=== PATIENT | female | born 1980 | race Caucasian/White ===

== ENCOUNTER 2018-04-21 22:00 | Inpatient (IN) | payer BC ==
[~2018-04-21 22:00] MED LIST: Bupivacaine 0.25% HCL 30 ML VIAL ONE; Bupivacaine/Epinephrine 0.25% 30 ML VIAL ONE
[2018-04-21] MEDS ORDERED: HYDROcodone/Acetaminophen 5/325 mg Tablet PO PRN ×2 (22:34)
[2018-04-21] MEDS ORDERED: Diphenoxylate HCl/Atropine Tablet PO PRN ×2 (22:34)
[2018-04-21] MEDS ORDERED: Ibuprofen 800 MG TAB PO PRN (22:34)
[2018-04-21] MEDS ORDERED: NS / Oxytocin 40 units/1000ml 1,000 ML IV PRN (22:34)
[2018-04-21] MEDS ORDERED: Promethazine HCl 25 MG/ML VIAL IM PRN (22:34)
[2018-04-21] MEDS ORDERED: NS w/ Oxytocin 10 units 500 ML IV SCH (22:34)
[2018-04-21] MEDS ORDERED: Misoprostol 200 MCG TAB PR PRN (22:34)
[2018-04-21] MEDS ORDERED: Lidocaine 1% (PF) 30 ML VIAL SC PRN (22:34)
[2018-04-21] MEDS ORDERED: Docusate 100 MG CAP PO PRN (22:34)
[2018-04-21] MEDS ORDERED: Zolpidem Tartrate 5 MG TAB PO PRN (22:34)
[2018-04-21] MEDS ORDERED: Butorphanol Tartrate 1 MG/ML VIAL SLOW IVP PRN (22:34)
[2018-04-21] MEDS ORDERED: Acetaminophen 500 MG TAB PO PRN (22:34)
[2018-04-21 22:43] VITALS: BMI 32.5
[2018-04-21] MEDS: Lactated Ringer's 1,000 ML IV SCH (23:00)
[2018-04-21] MEDS: Misoprostol 100 MCG TAB VAG SCH (23:10)
[2018-04-21 23:16] LABS: Hemoglobin 12.6 g/dL (12.0-16.0); Mean Corpuscular HGB CONC 33.7 g/dL (32.0-36.0); Mean Corpuscular Hemoglobin 30.3 pg (27.0-31.0); Mean Platelet Volume 8.2 fL (7.4-10.4); Platelet Count 251 thou/uL (130-400); RBC Distribution Width 13.3 % (11.5-14.5); Red Blood Cell (RBC) Count 4.16 mill/uL (4.20-5.40); White Blood Cell (WBC) Count 11.9 thou/uL (4.8-10.8)
[2018-04-21 23:53] LABS: HBSAg Index 0.28 S/CO (0-0.99); Hep B Surf Ag Non-Reactive S/CO (NonReactive)
[2018-04-21 23:58] LABS: Syphilis Antibody Nonreactive (Nonreactive); Syphilis Antibody Index 0.03 S/CO (<1.00 Non-Reactive)
[2018-04-22] MEDS: Lactated Ringer's 1,000 ML IV SCH ×3 (03:15→23:00)
[2018-04-22] MEDS: NS w/ Oxytocin 10 units 500 ML IV SCH (07:28)
[2018-04-22] MEDS: Misoprostol 100 MCG TAB VAG SCH ×6 (08:39→23:16)
[2018-04-22] MEDS ORDERED: Fentanyl 4 mcg/Bup 0.1% Cadd 100 ML ONE ×2 (12:04→19:21)
[2018-04-22] MEDS ORDERED: Fentanyl 100 MCG/2 ML VIAL ONE (12:05)
[2018-04-22] MEDS ORDERED: Fentanyl 100 MCG/2 ML VIAL EPIDURAL ONE (12:40)
[2018-04-22] MEDS ORDERED: Lactated Ringer's 500 ML IV PRN (13:51)
[2018-04-22] MEDS ORDERED: Naloxone HCl 0.4 mg/ml Vial IVP PRN ×2 (13:51)
[2018-04-22] MEDS ORDERED: Eucerin (Mineral Oil/Petrolatum,White) 30 gm Jar TOP PRN (13:51)
[2018-04-22] MEDS ORDERED: ePHEDrine/0.9% NaCl/PF SYRINGE 50 mg/10 ml SLOW IVP PRN (13:51)
[2018-04-22] MEDS ORDERED: Promethazine HCl 25 MG/ML VIAL IM PRN (13:51)
[2018-04-22] MEDS ORDERED: diphenhydrAMINE 50 MG/ML VIAL IVP PRN (13:51)
[2018-04-22] MEDS ORDERED: Ondansetron PF 4 MG/2 ML Vial IVP PRN (13:51)
[2018-04-22] MEDS ORDERED: Acetaminophen 325 MG TAB PO PRN (13:51)
[2018-04-22] MEDS ORDERED: Fentanyl 4 mcg/Bupivacaine 0.1% Cassette 100 ML EPIDURAL SCH (14:00)
[2018-04-22] MEDS ORDERED: Communication Order-Pharmacy FS SCH (14:00)
[2018-04-22] MEDS: Ondansetron PF 4 MG/2 ML Vial IVP PRN ×2 (16:06→22:38)
[2018-04-22] MEDS ORDERED: Acetaminophen 500 MG TAB PO PRN (22:13)
[2018-04-22] MEDS: Ampicillin 2 GM in Sodium Chloride 0.9% 100 ML IVPB SCH (22:40)
[2018-04-23] MEDS ORDERED: Fentanyl 4 mcg/Bup 0.1% Cadd 100 ML ONE (00:37)
[2018-04-23] MEDS: NS w/ Oxytocin 10 units 500 ML IV SCH (00:43)
[2018-04-23] MEDS: Ampicillin 2 GM in Sodium Chloride 0.9% 100 ML IVPB SCH (04:40)
[2018-04-23] MEDS: Misoprostol 100 MCG TAB VAG SCH ×2 (04:42→11:22)
[2018-04-23] MEDS ORDERED: CEFAZOLIN 2 GM/50 ML BAG ONE (05:57)
[2018-04-23] MEDS ORDERED: Bicitra 30 ML UDCUP ONE (05:57)
[2018-04-23] MEDS ORDERED: Lidocaine 2% 10 ML INJ ONE (06:20)
[2018-04-23] MEDS ORDERED: Ondansetron PF 4 MG/2 ML Vial ONE ×2 (06:27→16:48)
[2018-04-23] MEDS ORDERED: Oxytocin 10 UNITS/ML VIAL ONE ×2 (06:27→07:05)
[2018-04-23] MEDS ORDERED: Bupivacaine PF 0.5% 30 ML VIAL ONE (06:42)
[2018-04-23] MEDS ORDERED: Morphine PF 1 MG/ML SYR ONE (06:49)
[2018-04-23] MEDS ORDERED: Midazolam HCl 2 mg/2 ml Vial ONE (06:57)
[2018-04-23] MEDS ORDERED: PROPOFOL 20 ML ONE ×2 (06:58→07:33)
[2018-04-23] MEDS ORDERED: L&D-Morphine 4 MG/ML VIAL SLOW IVP PRN (07:09)
[2018-04-23] MEDS ORDERED: HYDROmorphone 2 MG/ML VIAL SLOW IVP PRN (07:09)
[2018-04-23] MEDS ORDERED: Meperidine HCl/PF 25 MG/ML VIAL SLOW IVP PRN (07:09)
[2018-04-23] MEDS ORDERED: Ondansetron HCl/PF 4 MG/2 ML Vial IVP PRN (07:09)
[2018-04-23] MEDS ORDERED: diphenhydrAMINE 50 MG/ML VIAL IVP PRN (07:10)
[2018-04-23] MEDS ORDERED: Naloxone HCl 0.4 mg/ml Vial IVP PRN ×2 (07:10)
[2018-04-23] MEDS ORDERED: Eucerin (Mineral Oil/Petrolatum,White) 30 gm Jar TOP PRN (07:10)
[2018-04-23] MEDS ORDERED: Naloxone HCl 0.4 mg/ml Vial IV PRN (07:10)
[2018-04-23] MEDS ORDERED: Ondansetron PF 4 MG/2 ML Vial IVP PRN ×2 (07:10→08:11)
[2018-04-23] MEDS ORDERED: Promethazine HCl 25 MG/ML VIAL IM PRN (07:10)
[2018-04-23] MEDS ORDERED: Promethazine HCl 25 MG SUPP PR PRN (07:10)
[2018-04-23] MEDS ORDERED: Communication Order-Pharmacy FS SCH (07:15)
[2018-04-23] MEDS ORDERED: Ketorolac Tromethamine 30 MG/ML VIAL IVP SCH (07:15)
[2018-04-23] MEDS ORDERED: Ketorolac Tromethamine 30 MG/ML VIAL ONE ×2 (07:34→16:48)
[2018-04-23] MEDS ORDERED: Lanolin Ointment 7 GM TUBE TOP PRN (08:11)
[2018-04-23] MEDS ORDERED: Zolpidem Tartrate 5 MG TAB PO PRN (08:11)
[2018-04-23] MEDS ORDERED: Acetaminophen/Codeine 30-300mg Tablet PO PRN (08:11)
[2018-04-23] MEDS ORDERED: Meperidine HCl/PF 25 MG/ML VIAL IM PRN (08:11)
[2018-04-23] MEDS ORDERED: Bisacodyl 10 MG SUPP PR PRN (08:11)
[2018-04-23] MEDS ORDERED: Misoprostol 200 MCG TAB PR PRN (08:11)
[2018-04-23] MEDS ORDERED: diphenhydrAMINE 25 MG CAP PO PRN (08:11)
[2018-04-23] MEDS ORDERED: Adacel (T-DAP) 0.5 ML SYRINGE IM ONE (08:11)
[2018-04-23] MEDS ORDERED: Acetaminophen 325 MG TAB PO PRN (08:11)
[2018-04-23] MEDS ORDERED: NS / Oxytocin 40 units/1000ml 1,000 ML IV SCH (08:15)
[2018-04-23] MEDS ORDERED: Meperidine HCl/PF 25 MG/ML VIAL ONE (08:32)
[2018-04-23] MEDS: Ferrous Sulfate 325 MG TAB PO SCH ×2 (11:21→21:11)
[2018-04-23] MEDS: Docusate Calcium (SURFAK) 240 MG CAP PO SCH ×2 (11:21→21:11)
[2018-04-23] MEDS: Prenatal Vitamin 1 TAB PO SCH (11:21)
[2018-04-23] MEDS: Lactated Ringer's 1,000 ML IV SCH ×3 (11:22→22:46)
[2018-04-23] MEDS: Ibuprofen 800 MG TAB PO SCH ×2 (13:35→21:12)
[2018-04-23] MEDS: Ketorolac Tromethamine 30 MG/ML VIAL IVP PRN ×2 (14:58→22:37)
[2018-04-23] MEDS ORDERED: PROPOFOL 200 MG/20 ML VIAL ONE (16:48)
[2018-04-23] MEDS ORDERED: traMADol HCl 50 MG TAB PO PRN (18:15)
[2018-04-24] MEDS: Ketorolac Tromethamine 30 MG/ML VIAL IVP PRN (05:35)
[2018-04-24 05:59] LABS: Hemoglobin 11.2 g/dL (12.0-16.0); Mean Corpuscular HGB CONC 33.5 g/dL (32.0-36.0); Mean Corpuscular Hemoglobin 30.7 pg (27.0-31.0); Mean Corpuscular Volume 91.6 fL (78.0-98.0); Mean Platelet Volume 7.8 fL (7.4-10.4); Platelet Count 203 thou/uL (130-400); RBC Distribution Width 13.5 % (11.5-14.5); Red Blood Cell (RBC) Count 3.63 mill/uL (4.20-5.40); White Blood Cell (WBC) Count 13.8 thou/uL (4.8-10.8)
[2018-04-24] MEDS: Ibuprofen 800 MG TAB PO SCH ×3 (08:43→21:21)
[2018-04-24] MEDS: Docusate Calcium (SURFAK) 240 MG CAP PO SCH ×2 (08:45→21:21)
[2018-04-24] MEDS: Acetaminophen/Codeine 30-300mg Tablet PO PRN ×4 (08:45→22:09)
[2018-04-24] MEDS: Simethicone Chewable 80 MG TAB PO PRN ×2 (08:45→13:34)
[2018-04-24] MEDS: Prenatal Vitamin 1 TAB PO SCH (08:47)
[2018-04-24] MEDS: Ferrous Sulfate 325 MG TAB PO SCH ×2 (08:48→22:14)
[2018-04-25] MEDS: Acetaminophen/Codeine 30-300mg Tablet PO PRN ×2 (05:54→12:06)
[2018-04-25] MEDS: Ibuprofen 800 MG TAB PO SCH (05:54)
[2018-04-25] MEDS: Docusate Calcium (SURFAK) 240 MG CAP PO SCH (08:45)
[2018-04-25] MEDS: Prenatal Vitamin 1 TAB PO SCH (08:49)
[2018-04-25] MEDS: Ferrous Sulfate 325 MG TAB PO SCH (08:55)
[2018-04-25 08:56] VITALS: BP 122/60; TEMP 97.7
--- NOTE | 2018-04-27 10:56 | OP ---
DATE OF PROCEDURE: 04/22/2018 RESIDENT SURGEON: Juan C Adan MD. DISTRICT AGENT SURGEON: Annabelle Deras MD. PREOPERATIVE DIAGNOSES: 1. Term intrauterine at 39 and 2/7th weeks. 2. Failure to progress. 3. Arrest of descent and dilatation. POSTOPERATIVE DIAGNOSES: 1. Term intrauterine at 39 and 2/7th weeks. 2. Failure to progress. 3. Arrest of descent and dilatation. 4. Cephalopelvic disproportion. ANESTHESIA: Epidural catheterization. FINDINGS: 1. Arrest of descent at 4 cm dilation, 90% effacement, -1 station. 2. Significant caput and moulding. 3. Vigorous male infant, 8 pounds 7 ounces, Apgars 9 and 9. 4. Normal uterus, tubes, and ovaries. 5. CPD - narrow outlet, prominent sacrum, android pelvis. COMPLICATIONS: None. SPECIMENS REMOVED: Cord blood. BLOOD LOSS: Approximately 500 mL. DESCRIPTION OF PROCEDURE: After thorough consent and counseling, Ms. Hines was taken to the operating room, and an adequate level of anesthesia was obtained via epidural catheterization. The patient was prepped and draped in usual sterile fashion for abdominal surgery. A Currie had previously been placed in the bladder, which was noted to be draining clear urine. Attention was then turned to performing the primary low-transverse section. A Pfannenstiel incision was made and carried sharply to the fascia, which was also sharply incised. The midline was identified, and the rectus muscles were retracted laterally. The abdominoperineal cavity was entered with usual safeguards carried out. A retractor was placed, and a bladder flap was created on the vesicouterine peritoneum. A bladder blade was then placed. A low-transverse incision was made on the well-developed lower uterine segment. Upon entering the amniotic sac, a small amount of clear amniotic fluid was visualized. The was noted to be vertex presentation in the occiput transverse position, still high in the pelvis. Significant caput and moulding were noted. Head was delivered, and baby was bulb suctioned on the abdomen. Nuchal cord x1 was delivered, was easily reduced. The shoulders and body were then delivered in an atraumatic fashion. The cord was doubly clamped and cut. The infant was handed to the Pediatric Team in attendance for the delivery. The infant was a vigorous viable male, weight 8 pounds 7 ounces with Apgars of 9 and 9 obtained at one and five minutes respectively. Cord blood was obtained. The placenta was manually removed from the uterus. The uterus was exteriorized, and good tone was noted. The uterine cavity was cleared of any remaining clot and fluid. The low-transverse incision was closed with a running locking ligature of #1 chromic. Multiple [id number] ligatures of #1 chromic were placed to facilitate strength and hemostasis. The bladder flap was reapproximated to the lower segment with a running ligature of 3-0 Monocryl. The posterior cul-de-sac and gutters were cleared of clot and fluid. The pelvis was carefully inspected. The sacrum was very prominent, and a very narrow outlet was noted. 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 These findings were consistent with cephalopelvic disproportion. The uterus was returned to the abdomen. Seprafilm was applied to the low-transverse incision and to the anterior aspect of the uterus for adhesion prevention. The incision was carefully inspected and noted to be hemostatic. The uterus, fallopian tubes, and ovaries were normal. Lap, sponge, and needle counts were correct. The peritoneum was closed with a running ligature of 2-0 Vicryl. The rectus muscles were reapproximated in the midline with interrupted ligatures of 2-0 Vicryl and #1 chromic. The fascia was closed with 2 ligatures of 0 Vicryl suture, which were tied in the midline. Good fascial integrity was appreciated. The incision was irrigated with copious amount of warm normal saline. The subcutaneous tissue was then closed with interrupted ligatures of 2-0 plain. The skin was closed with subcuticular stitch of 4-0 Monocryl and dressed with Dermabond. Lap, sponge, and needle counts were correct x3. Estimated blood loss during the surgical procedure was approximately 500 mL. QBL was pending. The patient was awakened and taken to the recovery room in good condition. Immediately following the surgery, the patient and family were made aware of the surgical procedure and operative findings. Questions were answered to their satisfaction. Job ID: [id number]
== END 2018-04-25 14:00 | disposition home or self-care (01) | DRG 787 ==
LOC: L&D 22:08 → 3SW 04-23 10:48
PROVIDERS: ADMIT Obstetrics & Gynecology; ATTEND Obstetrics & Gynecology
PROC: 3E033VJ Introduction of Other Hormone into Peripheral Vein, Percutaneous Approach (ICD-10-PCS; 2018-04-22)
PROC: 4A1HXCZ Monitoring of Products of Conception, Cardiac Rate, External Approach (ICD-10-PCS; 2018-04-22)
PROC: 4A1HXFZ Monitoring of Products of Conception, Cardiac Rhythm, External Approach (ICD-10-PCS; 2018-04-22)
PROC: 10D00Z1 Extraction of Products of Conception, Low, Open Approach (ICD-10-PCS; principal; 2018-04-23)
DX: O62.0 Primary inadequate contractions (principal); O75.2 Pyrexia during labor, not elsewhere classified; Z37.0 Single live birth; O33.9 Maternal care for disproportion, unspecified; O63.0 Prolonged first stage (of labor); Z3A.39 39 weeks gestation of pregnancy; O76 Abnormality in fetal heart rate and rhythm complicating labor and delivery; O69.81X0 Labor and delivery complicated by cord around neck, without compression, not applicable or unspecified
CPT/HCPCS: 36415; 51702; 85027; 86780; 86850; 86900; 86901; 87340; J0290; J0595; J1200; J1885; J2001; J2175; J2250; J2274; J2405; J2590; J2704; J3010; J7050; S0020

== ENCOUNTER 2021-02-22 16:11 | Outpatient (CLI) | payer BC | END 2021-02-22 16:12 | disposition home or self-care (01) | LOC: TBSIIMAG 16:11 | PROVIDERS: ATTEND Neurological Surgery | DX: M54.50 Low back pain, unspecified (principal); M47.817 Spondylosis without myelopathy or radiculopathy, lumbosacral region | CPT/HCPCS: 72110 ==